=== PATIENT | female | born 1960 | race Caucasian/White ===

== ENCOUNTER → 2017-03-28 | Emergency (ER) | payer OTHER, BC ==
[2017-03-28 17:57] VITALS: BP 124/78; PULSE 74; TEMP 99.4; BMI 26.3
== END | disposition left against medical advice (07) ==
LOC: FER 17:16
DX: Z53.21 Procedure and treatment not carried out due to patient leaving prior to being seen by health care provider (principal)
CPT/HCPCS: 99281-25

== ENCOUNTER 2017-06-05 07:40 | Day surgery (SDC) | payer BC ==
[2017-06-01 09:47] VITALS: BMI 26.9
--- NOTE | 2017-06-05 08:16 | HP ---
Past Medical History - Primary Care Physician PCP:: Nabil Vasquez - Admission Chief Complaint: postmenopausal vaginal bleeding, thicken EM History of Present Illness: 56 y o f with hx of thicken EM,and vaginal spotting admitted for hysteroscopy D &C , RBA discussed History Source: Patient Limitations to Obtaining History: No Limitations - Past Medical History Psych: Yes: Depression, Other (body dismorphic) Endocrine: Yes: Diabetes Mellitus, Hypothyroidism - Past Surgical History Hx Myomectomy: No Hx Transabdominal Cerclage: No - Smoking History Smoking history: Former smoker Have you smoked in the past 12 months: No If you are a former smoker, when did you quit?: 28YRS AGO - Alcohol/Substance Use Hx Alcohol Use: No - Social History Usual Living Arrangement: Yes: With Spouse History of Recent Travel: No Home Medications - Allergies Allergies/Adverse Reactions: Allergies Allergy/AdvReac Type Severity Reaction Status Date / Time No Known Allergies Allergy Verified 03/28/17 17:49 - Home Medications Home Medications: Ambulatory Orders Lamotrigine [Lamictal] 100 mg PO BID 11/22/13 Levothyroxine Sodium [Synthroid] 200 mcg PO DAILY 03/28/17 Metformin HCl 500 mg PO HS 03/28/17 Cholecalciferol (Vitamin D3) [Vitamin D3] 50,000 unit PO WEEKLY 06/01/17 Eszopiclone [Lunesta] 1 mg PO HS 06/01/17 Review of Systems - Review of Systems Constitutional: reports: No Symptoms, Weakness Eyes: reports: No Symptoms Cardiovascular: reports: No Symptoms Respiratory: reports: No Symptoms Gastrointestinal: reports: No Symptoms Genitourinary: reports: Vaginal Bleeding Musculoskeletal: reports: No Symptoms Integumentary: reports: No Symptoms Neurological: reports: No Symptoms Endocrine: reports: No Symptoms Hematology/Lymphatic: reports: No Symptoms Psychiatric: reports: No Symptoms Physical Exam-PROCESSING REP Vital Signs: Vital Signs Temperature 98.2 F 06/05/17 08:04 Pulse Rate 83 06/05/17 08:04 Respiratory Rate 20 06/05/17 08:04 Blood Pressure 158/84 06/05/17 08:04 O2 Sat by Pulse Oximetry (%) 98 06/05/17 08:05 Constitutional: Yes: Well Nourished, No Distress, Calm Eyes: Yes: WNL, Conjunctiva Clear, EOM Intact HENT: Yes: WNL, Atraumatic, Normocephalic Neck: Yes: WNL, Supple, Trachea Midline Cardiovascular: Yes: WNL, Regular Rate and Rhythm Respiratory: Yes: WNL, Regular, CTA Bilaterally Gastrointestinal: Yes: WNL ...Rectal Exam: Yes: WNL Renal/: Yes: WNL Pelvis: Yes: WNL External Genitalia: Yes: Normal Internal Exam Deferred: No Vaginal Exam: Yes: Normal Cervix: Yes: Normal Uterus: Yes: Lumpy (fibroid uterus) Adnexa: Not Palpable: Left, Right Breast(s): Yes: WNL Musculoskeletal: Yes: WNL Extremities: Yes: WNL Edema: No Integumentary: Yes: WNL Neurological: Yes: WNL, Alert, Oriented ...Motor Strength: WNL Psychiatric: Yes: WNL, Alert, Oriented Problem List - Problem (1) Postmenopausal bleeding Code(s): N95.0 - POSTMENOPAUSAL BLEEDING (2) Thickened endometrium Code(s): R93.8 - ABNORMAL FINDINGS ON DIAGNOSTIC IMAGING OF BODY STRUCTURES Assessment/Plan hysteroscopy D&C
[2017-06-05] MEDS ORDERED: ONDANSETRON 4 MG/2 ML VIAL IVPUSH PRN (09:05)
[2017-06-05] MEDS ORDERED: PROMETHAZINE HCL 25 MG/1 ML VIAL IVPUSH PRN (09:05)
[2017-06-05] MEDS ORDERED: oxyCODONE HCL 5 MG TABLET PO PRN ×2 (09:05→10:34)
[2017-06-05] MEDS ORDERED: LACTATED RINGERS SOLUTION 1,000 ML IV SCH (09:15)
[2017-06-05] MEDS ORDERED: MIDAZOLAM HCL 2 MG/2 ML SINGLE DOSE VIAL ONE ×2 (09:15)
[2017-06-05] MEDS ORDERED: ONDANSETRON 4 MG/2 ML VIAL ONE (10:23)
[2017-06-05] MEDS ORDERED: IBUPROFEN 600 MG TABLET (FP) PO PRN (10:34)
[2017-06-05] MEDS ORDERED: ONDANSETRON 4 MG/2 ML VIAL IVPB PRN (10:34)
[2017-06-05] MEDS ORDERED: IBUPROFEN 800 MG/8 ML IJ IVPB PRN (10:34)
[2017-06-05] MEDS ORDERED: ELECTROLYTE-148 SOLN 1,000 ML IV SCH (10:45)
[2017-06-05 11:12] VITALS: BP 111/58; PULSE 65
[2017-06-05 11:21] VITALS: TEMP 97.8
--- NOTE | 2017-06-05 18:10 | OP ---
DATE OF OPERATION: 06/05/2017 PREOPERATIVE DIAGNOSES: Postmenopausal bleeding, thickened endometrium. POSTOPERATIVE DIAGNOSES: Postmenopausal bleeding, thickened endometrium, endometrial polyp. SURGEON: Nabil Vasquez MD ANESTHESIA: General. ANESTHESIOLOGIST: Vivi Mejia MD ESTIMATED BLOOD LOSS: 50 mL DESCRIPTION OF OPERATION: Patient was taken to the operating room. Under adequate general anesthesia in dorsal lithotomy position, examination under anesthesia revealed vagina to be atrophic. Cervix was clean; no gross lesion. Uterus normal size. Adnexa: No masses were palpable. Then, with the weighted speculum in the vagina, anterior lip of the cervix was grasped with a single-tooth tenaculum. Cervix was slightly dilated with Hegar dilator. There was an endocervical adhesion which they were gradually lysed with Hegar dilator, and then, hysteroscope was introduced. Visualization of endocervical canal appeared to be normal. There was a small 1-cm polyp at the mid-portion of the uterus. Both ostia were visualized. The rest of the endometrium appeared to be atrophic. Then, cervix was more dilated with Hegar dilator, and then, endometrial polyp was removed. Then, endometrium was curetted. Patient tolerated the procedure well, left the OR in good condition. Brook [id number]
--- NOTE | 2017-06-06 12:55 | PATH ---
Surgical Pathology Report Patient Name: AUSTIN CONTRERAS [facility]. Rec. #: [id number] /Age/Gender: 1960 (Age: 56) / F Account: [id number] Location: [facility] SURGICAL Taken: 06/05/2017 Received: 06/05/2017 Reported: 06/06/2017 Physicians: Nabil Vasquez M.D. Specimen(s) Received ENDOMETRIAL CURETTINGS Clinical History Postmenopausal bleeding Final Diagnosis ENDOMETRIUM, CURETTING: SCANT BENIGN ENDOCERVICAL TISSUE. NO DEFINITE ENDOMETRIUM IDENTIFIED. Comment: Recommend correlation with clinical findings and follow up as clinically indicated. Electronically Signed Akhil Handley M.D. Gross Description Received in formalin labelled "endometrial curetting" is a 0.2 cm greatest dimension piece of su tissue. Totally submitted in one cassette. [facility]/06/05/2017 [facility]/06/05/2017
== END 2017-06-05 12:24 | disposition home or self-care (01) ==
LOC: JASU-SURG 07:40
PROVIDERS: ATTEND Obstetrics & Gynecology
PROC: 0UB98ZX Excision of Uterus, Via Natural or Artificial Opening Endoscopic, Diagnostic (ICD-10-PCS; principal; 2017-06-05 09:00)
PROC: 0UDB8ZX Extraction of Endometrium, Via Natural or Artificial Opening Endoscopic, Diagnostic (ICD-10-PCS; 2017-06-05 09:00)
DX: N95.0 Postmenopausal bleeding (principal); N84.0 Polyp of corpus uteri
CPT/HCPCS: 88305-TC; 94760